=== PATIENT | female | born 1965 | race Caucasian/White ===

== ENCOUNTER → 2016-04-22 | Day surgery (SDC) | payer OTHER ==
[~2016-04-22] MED LIST: AMLODIPINE BESY10 MG PO; CIPRO; CLONIDINE HCL0.1 MG PO; FLUOXETINE HCL20 M1 PO; HYDROCHLOROTHIA25 MG PO; HYDROCODON-ACE1 EAC7 PO; IBUPROFEN800 MG PO; LOPRESSOR PO; LORTAB 5/500 TA1 TA1 PO; MOTRIN600 MG PO; MYSOLINE250 MG; OMEPRAZOLE40 M1 PO; PREDNISONE50 MG PO; PRIMIDONE; PROZAC; REQUIP
--- NOTE | ~2016-04-22 | OR ---
Unit #: [id number] #: [id number] Patient: ROBERTO ARCE [id number] [address] [address] [id number] O MR#: [id number] NAME: ROBERTO ARCE ROOM: Date of Procedure: 04/22/2016 Admission Date: 04/22/2016 Surgeon: David Graf M.D. : 1965 Attending Physician: David Graf M.D. Primary Care Physician: Yaritza Garcias M.D. OPERATIVE REPORT PREOPERATIVE DIAGNOSIS Rotator cuff impingement with rotator cuff tear, left shoulder. POSTOPERATIVE DIAGNOSES AND FINDINGS 1. Type 1 SLAP lesion. 2. Full-thickness cuff tear involving the supraspinatus and the infraspinatus approximately 4 cm long. PROCEDURES PERFORMED Arthroscopy, subacromial decompression, debridement of type 1 SLAP lesion, and mini open rotator cuff repair of left shoulder. IMPLANT USED Arthrex SwiveLock anchors x3. HISTORY AND FINDINGS The patient is a 50-year-old, who sustained injury to the left shoulder and has been having pain and difficulty with overhead activity. She had been treated conservatively. She had persistent symptoms. Had MRI suggestive of a cuff tear. As she failed conservative measures, she was offered rotator cuff repair. Risks of anesthesia and complications of surgery like infection, neurovascular injury, stiffness, loss of fixation, need for further surgery had been explained. The patient voices understanding and wishes to proceed. DESCRIPTION OF PROCEDURE After induction of general anesthesia, the patient was placed in the beach chair position and the left shoulder was prepped and draped free. A time-out was called. Operative site was confirmed. The shoulder was infiltrated 1% Xylocaine with epinephrine. Then, through a posterior portal, arthroscopy was performed. The superior labrum and the biceps anchor was checked. Superior labrum revealed type 1 SLAP lesion. In anterior labrum, there was some fraying of the labrum and hypertrophic synovitis involving the shoulder joint. The inferior labrum and recess was normal. Posterior labrum and the glenohumeral joint was normal. The biceps tendon was followed to the intertubercular sulcus and was found to be intact. Subscapularis was intact. Just posterior to the biceps tendon, full-thickness tear of the supraspinatus and the posterior cuff revealed similar tear of the infraspinatus. The posterior cuff was grossly intact. At this point, an anterior portal was established and debridement of the hypertrophic synovium and the anterior and superior labrum was debrided to stable surface. The remaining was probed and Unit #: [id number] #: [id number] Patient: ROBERTO ARCE appeared to be grossly intact. Then, the scope was withdrawn and introduced into the subacromial space and subacromial decompression was performed with bursectomy and the bursal side of the cuff tear was examined and revealed a full-thickness tear. At this point, anterolateral portal was established and decided to do a mini open repair. A skin incision approximately 3 cm long was made. Incision deepened down by sharp dissection and carried down. The deltoid fibers were split and the subacromial space was entered. Additional bursectomy was performed and the cuff was further evaluated. It does completely torn from just posterior to the biceps tendon to the infraspinatus. Also, there was linear longitudinal tear on the cuff between the supra and infraspinatus. Then, using #2 FiberWire, this linear tear was approximated by interrupted sutures. Then, the greater tuberosity revealed sharp ridges, which was contributing to the impingement and it was quite prominent. Using a rongeur and a rasp, the greater tuberosity was smoothened down and then the greater tuberosity was prepped to cortical bleeding surface. Then, a medial anchor was placed using 4.75 suture anchor, which was placed just lateral to the articular surface and these two sutures were bypassed on either side of the linear tear. Then, two additional fiber tape was placed, one posterior on the infraspinatus and another anterior on the supraspinatus and brought laterally, and the greater tuberosity has already been prepped and these two fiber tapes along with the medial row tape, one from the medial row and two from the posterior tape were anchored with the lateral SwiveLock anchor posteriorly and then another anteriorly incorporating the two FiberTape and one from the medial row anchor and another anterior anchor was placed. This helped pull the cuff down to the anatomic footprint and the FiberWire in these anchors were cross tied with the FiberWire sutures from the linear tear causing additional pressure on the cuff on its footprint, and sutures were cut and the repair was examined and was found to be satisfactory. Wound was copiously irrigated and hemostasis was obtained. 0 Vicryl was used to repair the deltoid, 2-0 plain for the subcutaneous tissue, and 4-0 nylon for the skin. Sterile compression dressing and a shoulder immobilizer in an abduction pillow was given. Blood loss was 20 mL. The patient received preoperative antibiotics. Tolerated the procedure well and was transferred to the recovery room in satisfactory condition. POSTOPERATIVE INSTRUCTIONS 1. Ice packs to the left shoulder and range of motion to the elbow and wrist. 2. [place] 7.5 mg p.o. q.6 hours p.r.n. 3. She was given a followup appointment and return to my office in one week. If any problems, to contact me. Dictated by... Thor Crawford/xena TD: 04/22/2016 18:15 JOB #: [id number] Unit #: [id number] #: [id number] Patient: ROBERTO ARCE OPERATIVE REPORT X David Graf MD PROCEDURE OPERATIVE NOTE
[2016-04-22 07:12] LABS: URINE SOURCE CLEAN CATCH
[2016-04-22 07:16] LABS: URINE APPEARANCE CLEAR; URINE BILIRUBIN NEG (NEG); URINE BLOOD NEG (NEG); URINE COLOR YELLOW; URINE GLUCOSE NEG (NEG); URINE KETONE NEG (NEG); URINE LEUKOCYTE ESTERASE NEG (NEG); URINE NITRATE NEG (NEG); URINE PH 5.5 (5-8); URINE PROTEIN NEG (NEG); URINE UROBILINOGEN 0.2 MG/DL (NEG)
[2016-04-22 07:19] LABS: BASOPHIL% 0.2 % (0-2.5); DIFF IND NO; EOSINOPHIL# 0.5 X10e3 (0-0.7); EOSINOPHIL% 6.3 % (0.0-7.0); HEMATOCRIT 35.4 % (35.0-45.0); HEMOGLOBIN 11.6 gm/dL (12.0-16.0); LYMPHOCYTE# 2.4 X10e3 (1.0-3.5); LYMPHOCYTE% 29.9 % (17.0-45.0); MEAN CELL VOLUME 83.3 FL (83-96); MEAN CORPUSCULAR HEMOGLOBIN 27.2 PG (28-34); MEAN CORPUSCULAR HGB CONC 32.7 g/dL (30-36); MEAN PLATELET VOLUME 7.8 FL (6.5-11.5); MONOCYTE# 0.7 X10e3 (0-1.0); MONOCYTE% 8.4 % (3.0-12.0); NEUTROPHIL# 4.3 X10e3 (1.5-7.1); NEUTROPHIL% 55.2 % (40-75); PLATELET COUNT 297 X10e3 (140-420); RED BLOOD COUNT 4.25 X10e (3.90-5.30); WHITE BLOOD COUNT 7.9 X10e3 (4.0-10.5)
[2016-04-22 07:22] LABS: CULTURE INDICATED? NO
== END | disposition home or self-care (01) ==
LOC: CSUR 06:14
PROVIDERS: Orthopaedic Surgery
DX: S43.432A Superior glenoid labrum lesion of left shoulder, initial encounter (principal); M75.122 Complete rotator cuff tear or rupture of left shoulder, not specified as traumatic; M65.812 Other synovitis and tenosynovitis, left shoulder; M25.812 Other specified joint disorders, left shoulder; D64.9 Anemia, unspecified; K21.9 Gastro-esophageal reflux disease without esophagitis; Z90.89 Acquired absence of other organs
CPT/HCPCS: 81003; 84132; 84703; 85025; C1713; J0171; J0330; J0690; J1100; J2250; J2795; J3010

== ENCOUNTER → 2016-05-25 | Outpatient (CLI) | payer OTHER ==
--- NOTE | ~2016-05-25 | CR170 ---
[facility] A Service of [facility] RADIOLOGY TEXT RESULTS PATIENT: ROBERTO ARCE LOCATION: [facility] : [birth year] UNIT #: [id number] AGE: [address]: MILIND HARPER SEX: F ORDER DR: [id number] [facility] [address]. [place], [place] [address] [id number] O MR#: [id number] Acc #: [id number] NAME: ROBERTO ARCE : 1965 SEX: F STUDY DATE/TIME: 05/25/2016 18:36 UNIT: [facility] ROOM: STUDY DESCRIPTION: CR Knee 2 Views Rt Attending Physician: Milind Harper Aprn Referring Physician: Milind Harper Aprn Ordering Physician: Milind Harper Aprn Primary Care Physician: Yaritza Garcias M.D. MEDICAL IMAGING REPORT This report is preliminary unless electronic signature is present EXAM Right knee, 2 views HISTORY Knee pain and swelling for 2 weeks. No injury. FINDINGS 2 views of the right knee demonstrate mild degenerative joint space narrowing in the medial compartment. No fracture or effusion. No abnormal sclerosis. IMPRESSION Mild degenerative joint space narrowing in the medial compartment. No acute findings. Dictated by... Davin Malone M.D. THIS IS AN ELECTRONICALLY VERIFIED REPORT Davin Malone M.D. at 05/26/2016 4:36 PM DFL/psc TD: 05/26/2016 00:06 JOB #: [id number] MEDICAL IMAGING REPORT Page 1 of 1 COPY
== END | disposition home or self-care (01) ==
LOC: CRAD 18:19
DX: M25.561 Pain in right knee (principal); M25.861 Other specified joint disorders, right knee
CPT/HCPCS: 73560

== ENCOUNTER 2016-07-19 23:56 | Emergency (ER) | payer OTHER ==
--- NOTE | ~2016-07-19 | EKG ---
PATIENT: ROBERTO ARCE UNIT #: [id number] Ventricular Rate: 93 BPM Atrial Rate: 93 BPM P-R Interval: 170 ms QRS Duration: 158 ms Q-T Interval: 440 ms QTC Calculation(Bezet): 547 ms P [place]: 63 degrees Calculated R [place]: -9 degrees Calculated T [place]: 82 degrees Diagnosis Line: Normal sinus rhythm Diagnosis Line: Left bundle branch block with repolarization Diagnosis Line: abnormality Diagnosis Line: Abnormal ECG Diagnosis Line: When compared with ECG of 19-APR-2016 12:56, Diagnosis Line: QT has lengthened Diagnosis Line: Confirmed by SAMANTHA REN MD ([id number]) on 07/21/2016 Diagnosis Line: 5:58:20 PM INTERPRETING MD: MIKAL ROMERO
[2016-07-20 04:01] LABS: BASOPHIL# 0.1 X10e3 (0-0.3); BASOPHIL% 0.7 % (0-2.5); DIFF IND NO; EOSINOPHIL# 0.3 X10e3 (0-0.7); EOSINOPHIL% 2.6 % (0.0-7.0); HEMATOCRIT 33.9 % (35.0-45.0); HEMOGLOBIN 11.2 gm/dL (12.0-16.0); LYMPHOCYTE% 28.5 % (17.0-45.0); MEAN CELL VOLUME 84.1 FL (83-96); MEAN CORPUSCULAR HEMOGLOBIN 27.7 PG (28-34); MEAN CORPUSCULAR HGB CONC 32.9 g/dL (30-36); MEAN PLATELET VOLUME 7.5 FL (6.5-11.5); MONOCYTE# 0.9 X10e3 (0-1.0); MONOCYTE% 8.2 % (3.0-12.0); NEUTROPHIL# 6.3 X10e3 (1.5-7.1); PLATELET COUNT 357 X10e3 (140-420); RED BLOOD COUNT 4.04 X10e (3.90-5.30); RED CELL DISTRIBUTION WIDTH 16.8 % (11.0-15.5); WHITE BLOOD COUNT 10.5 X10e3 (4.0-10.5)
[2016-07-20 04:13] LABS: POC - CKMB 2.1 ng/mL (0.0-7.9); POC - TROPONIN <0.05 ng/mL (<=0.05)
[2016-07-20 04:39] LABS: ALBUMIN SERUM 4.1 g/dL (3.5-5.0); BILIRUBIN,TOTAL 0.3 mg/dL (0.2-2.0); CALCIUM SERUM 9.5 mg/dL (8.4-10.2); CREATININE SERUM 0.5 mg/dL (0.6-1.4); GLOM FILT RATE Estimated 112.9 mL/min (>60); PROTEIN TOTAL SERUM 7.8 g/dL (6.0-8.3)
[2016-07-20 04:45] LABS: POTASSIUM 2.8 mmol/L (3.5-5.1)
== END 2016-07-20 05:40 | disposition home or self-care (01) ==
LOC: CED 23:56
PROVIDERS: Nurse Practitioner
DX: E87.6 Hypokalemia (principal); M25.571 Pain in right ankle and joints of right foot; M25.572 Pain in left ankle and joints of left foot; M79.671 Pain in right foot; M79.672 Pain in left foot; F41.9 Anxiety disorder, unspecified; I10 Essential (primary) hypertension; Z98.890 Other specified postprocedural states
CPT/HCPCS: 36415; 80053; 82553; 83880; 84484; 85025; 85379; 93005; 96361; 96374; 96375; 99284; J2270; J2405